=== PATIENT | female | born 1975 | race Caucasian/White ===

== ENCOUNTER 2024-06-26 12:52 | Emergency (ER) | payer MEDICAID, SELFPAY ==
[2024-06-26] VITALS (114 sets, daily range): BP systolic 105–141; BP diastolic 58–91; PULSE 53–124; RESP 15–50; TEMP 36.2–36.6; O2SAT 92–98
--- NOTE | 2024-06-26 13:23 | ED.GENADUL_ITS ---
Discharge Plan Discharge Details Chief Complaint: Abd Prob Clinical Impression: Pneumoperitoneum, Rectal mass, Liver mass Primary Care Provider: None,None ED Provider: Jeramie Cochran [place] Meds and New Rx's Prescriptions: No Action omeprazole 20 MG capsule,delayed release(DR/EC) 20 mg PO DAILY Qty: 60 0RF Rx Instructions: Take in the morning on an empty stomach at least 20-30 minutes before first meal ibuprofen [Advil] 200 MG tablet 1 tab PO PRN PRN HPI General Date/Time Provider Initiated Documentation: 06/26/24 13:14 . HPI Narrative: [facility] This is a cachectic tachycardic[ ] 49-year-old female with generalized abdominal pain concerning for possibility of appendicitis versus diverticulitis. Patient will undergo CT scan. No pain out of proportion to suggest necrotizing soft tissue infection. No rash to abdomen to suggest zoster. No chest pain or shor tness of breath to suggest ACS I did not obtain an ECG this patient has abdominal tenderness. Pain was postprandial so biliary colic is certainly in the differential. Patient has a reassuring CT scan we will consider formal right upper quadrant ultrasound. I considered sepsis patient is tachycardic however she is not septic appearing and not hypotensive so I did not feel that she required broad-spectrum antibiotics nor assessment of her lactate. Patient is quite slight and she has not had a colonoscopy so colonic mass is certainly in differential. Given general pain and no history of nephrolithiasis my suspicion is low for ureterolithiasis. Based on the patient's low BMI SMA syndrome is certainly in the differential. Patient has no history of inflammatory bowel disease some not suspicious for new onset Crohn's or ulcerative colitis based on the patient's age. Nonicteric sclera and not altered so doubt extension cholangitis. No dysuria or frequency to suggest UTI so did not order urinalysis. My suspicion is low for small bowel obstruction given no past surgical history. Given marijuana use cannabinoid hyperemesis syndrome certainly possibility. Will reassess following CT scan. 2:51 PM Patient has new hyperbilirubinemia and an DIONY. Anion gap but normal bicarbonate??not consistent with DKA. Mildly elevated alkaline phosphatase. Negative hCG. Lipase within normal limits. CBC showing erythrocytosis but no leukocytosis. New thrombocytosis. 4:45 PM Patient has a large rectal mass with perforation and multiple hepatic mets and pulmonary nodules suspicious for metastatic disease. I was in touch with Dr. Cano from general surgery and he felt that the patient would benefit from tertiary care involvement as she would likely need ICU and possibility of a colo rectal surgeon. I reached out to the transfer center at [facility]. They are checking for capacity. Patient's heart rate is improving. She is normothermic. She is hide blood cultures drawn and received piperacillin/tazobactam. She has been n.p.o. since midnight. I updated the patient on her new diagnosis of malignancy. General surgery evaluated the patient at bedside and would be willing to accept the patient locally if tertiary care were not available. Will sign patient out to the evening provider. Chronic conditions affecting the care of the patient: N/A History obtained from an outside historian: N/A External record review: No [facility] EMR records Medications: Ondansetron fentanyl Social determinants of health affecting disposition: N/A Management discussed with: General Surgery & EM Treatment/interventions considered: N/A Response to therapies provided: N/A HPI This is a 49-year-old female brought to the emergency department via private vehicle with her son in setting of abdominal pain which has been throbbing constant and generalized for approximately 24 hours. Patient denies exacerbators and alleviators. She has had no surgeries in the past to her abdomen. She denies dysuria and frequency. She has no history of inflammatory bowel disease and specifically denies Crohn's or ulcerative colitis. She is a daily smoker and uses marijuana. She denies routine ethanol. She has never had a colonoscopy in the past. She does endorse a fever but she does not recall how high it was. She has had years worth of diarrhea. She denies history of nephrolithiasis. Exam General: Uncomfortable-appearing in no acute distress speaking in complete sentences. Head: Normocephalic, atraumatic. Eye: Extraocular eye movements intact. No conjunctival injection. No scleral icterus. Ear, nose, mouth, throat: Grossly normal inspection. Normal voice, handling secretions normally. Neck: Trachea midline. Cardiovascular: Well-perfused distal extremities. Rapid regular rate Respiratory: Nonlabored respiration. Clear lungs bilaterally Gastrointestinal: Nondistended abdomen. Scaphoid abdomen. Generalized abdominal tenderness. No rebound. No guarding. Musculoskeletal: No edema. Moving all 4 extremities spontaneously. Skin: Normal for age and race, grossly normal temperature and turgor. No acute rash. Neurologic: Alert and appropriate, no apparent acute deficits. GCS 15. Psychiatric: Mood and manner are appropriate. Grooming and personal hygiene are appropriate. Related Data Home Medications ?Medication ?Instructions ?Recorded ?Confirmed ibuprofen 200 mg tablet (Advil) 1 tab PO PRN PRN 05/23/14 06/26/24 omeprazole 20 mg capsule,delayed 20 mg PO DAILY #60 tab-caps 08/08/17 06/26/24 release Previous Rx's ?Medication ?Instructions ?Recorded omeprazole 20 mg capsule,delayed 20 mg PO DAILY #60 tab-caps 08/08/17 release Allergies Allergy/AdvReac Type Severity Reaction Status Date / Time sulfamethoxazole (From Allergy Severe Skin Rash Verified 06/26/24 15:03 Bactrim) and can't breathe trimethoprim (From Bactrim) Allergy Severe Skin Rash Verified 06/26/24 15:03 and can't breathe hydrocodone bitartrate (From Allergy Intermediate wakeful Verified 06/26/24 15:03 Vicodin) diazepam (From Valium) Allergy Mild wakeful Verified 06/26/24 15:03 diphenhydramine HCl (From Allergy Unknown Agitation Verified 06/26/24 15:03 Benadryl) acetaminophen (From Percocet) AdvReac Mild Nausea Verified 06/26/24 15:03 calamine AdvReac Mild itchy rash Verified 06/26/24 15:03 oxycodone HCl (From Percocet) AdvReac Mild Nausea Verified 06/26/24 15:03 oxyclean Allergy Mild Hives Uncoded 06/26/24 13:26 flea spray Allergy Rash Uncoded 06/26/24 15:03 dago dish soap AdvReac Mild itchy rash Uncoded 06/26/24 13:26 General Stated Complaint: Abd Prob MARIA TERESA: 3 Course Vital Signs Vital signs: Vital Signs Pulse 124 H 06/26/24 13:07 Respiratory Rate 15 06/26/24 13:07 Blood Pressure 113/74 06/26/24 13:07 Pulse Oximetry 98 06/26/24 13:07 Pulse 124 H 06/26/24 13:07 Respiratory Rate 15 06/26/24 13:07 Blood Pressure 113/74 06/26/24 13:07 Blood Pressure Position Sitting 06/26/24 13:07 Pulse Oximetry 98 06/26/24 13:07 Oxygen Delivery Method Room Air 06/26/24 13:07 Oxygen Flow Rate 0 06/26/24 13:07 Medical Decision Making Quality:SDOH Health Related Social Needs: No Data to Display Critical Care Time Critical Care Time Critical Care Time: Yes Total Critical Care Time: 30 Attestation: Bedside assessment and coordination of care PFSH All Active Problems (Updated 06/26/24 @ 16:49 by Jeramie Cochran MD) Liver mass (Acute) Rectal mass (Acute) Pneumoperitoneum (Acute) Medical History (Updated 06/26/24 @ 16:49 by Jeramie Cochran MD) Hepatitis C Hepatitis A MRSA (methicillin resistant Staphylococcus aureus) Substance abuse Hx of abnormal cervical Pap smear Colposcopy 06/2014 Surgical History (Updated 05/10/18 @ 14:35 by [employer] [place]) Tonsillectomy (06/28/14) Cervical Surgery for Precancerous Lesion Family History Mother Essential hypertension Hyperlipidemia Father Essential hypertension Hyperlipidemia Stroke Brother No problems noted. Maternal Grandmother Rheumatic fever Maternal Uncle Diabetes Sister Substance abuse Social History Smoking/Tobacco Use Status: Current every day Tobacco Type: cigarettes Smoking risk assessment performed?: Yes Alcohol Intake: never Drug use: Never Housing: house Do you feel safe at home: Yes Do you feel safe in your relationship?: Yes
--- NOTE | 2024-06-26 13:23 | DI.CT_ITS ---
Exam(s) CT ABDOMEN PELVIS W EXAM: CT ABDOMEN PELVIS W CLINICAL HISTORY: Generalized abdominal pain TECHNIQUE: Imaging Protocol: Axial computed tomography images with coronal and sagittal reformatted images were created and reviewed. CONTRAST MATERIAL: Intravenous: Omnipaque 350 Contrast volume:75 mL Oral: yes / no COMPARISON: No exams were available for comparison FINDINGS: ABDOMEN: Lung Bases: There is a 6 mm nodule in the right middle lobe (series 10, image 2). Liver: Normal density. There are multiple hepatic masses present. The largest is in the right lobe a nd measures 7.1 x 6.7 cm (series 10, image 27. The findings are most suspicious for metastatic disea se. Portal, Superior Mesenteric, and Splenic Veins: Unremarkable. Gallbladder and Biliary Tract: No radiodense calculus or dilation. Pancreas: Normal density, no abnormal calcifications or inflammatory process. Spleen: Normal. Adrenals: There is nodularity of the left adrenal gland. The right adrenal gland is unremarkable. Kidneys: Normal size, contour and axis. No radiodense stones or obstructive uropathy. There is a 3.8 craniocaudad by 4.0 transverse by 3.0 AP cm heterogeneously enhancing mass arising from the superior aspect of the left kidney most suspicious for renal neoplasm. Abdominal Aorta: Abdominal portion non-dilated. Atherosclerotic calcification is present. There is a less than 2 cm dissection seen in the distal abdominal aorta of indeterminate age. Bowel: There is circumferential thickening of the wall of the rectum measuring up to 2 cm. It measur es approximately 9 cm in length. There is rupture of the wall at the left aspect (image 184. There is moderate pneumoperitoneum present. There are enlarged lymph nodes in the perirectal soft tissues. There are scattered areas of wall thickening involving the stomach small bowel and colon. No evide nce of appendicitis. There is stool seen in the colon particularly in the transverse and ascending c olon. Peritoneal Cavity: Small amount of perihepatic and right pericolic color ascites. There is a small t o moderate amount of pelvic ascites present. There is pneumoperitoneum present. Lymph Nodes: There are enlarged perirectal lymph nodes. Bones: Within normal limits for the patient's age. No aggressive osseous lesions. Soft Tissues: Unremarkable. PELVIS: Bladder: Symmetric distention, no gross wall thickening. Reproductive Organs: Unremarkable as visualized. Lymph Nodes: Within normal limits. Bones: Within normal limits for the patient's age. IMPRESSION: 1. Circumferential thickening up to 2 cm in the rectum suspicious for rectal neoplasm. There is perf oration anteriorly into the left with [id number] pneumoperitoneum resulting. There are enlarge d lymph nodes in the perirectal soft tissues. 2. Multiple hepatic masses consistent with metastatic disease. 3. Right middle lobe pulmonary nodule suspicious for pulmonary metastatic disease. 4. Abdominal pelvic ascites. 5. Heterogeneously enhancing left renal lesion suspicious for renal neoplasm. 6. Bowel wall thickening seen in the stomach small bowel and colon. An infectious/inflammatory proce ss should be considered. Neoplasm cannot be excluded. 7. Findings were discussed with Dr. Cochran at 3:50 p.m. on 06/26/2024. RADIATION DOSE DELIVERED: 172.01mGy.cm Total DLP DATA REPOSITORY: All CT scans at this facility are submitted to the National Radiology Data Registry (NRDR) Dose Index Registry (DIR) with the [employer] (ACR). RADIATION OPTIMIZATION: All CT scans at this facility use at least one of these dose optimization te chniques: automated exposure control; mA and/or kV adjustment per patient size (includes targeted exa ms where dose is matched to clinical indication); or iterative reconstruction.
[2024-06-26] MEDS: Ondansetron 4 MG/2 ML VIAL IVP ×2 (13:40→18:30)
[2024-06-26] MEDS: fentaNYL 100 MCG/2 ML VIAL 50 MCG IVP ×2 (13:41→14:58)
[2024-06-26 13:43] LABS: HCT 50.8 % (36.0-46.0); HGB 16.6 g/dL (11.2-15.7); MCH 26.7 pg (27.0-33.0); MCHC 32.7 % (32.0-36.0); MCV 82 fL (80-95); MPV 9.5 fL (8.0-11.0); Platelet Count 532 10^3/uL (130-400); RBC 6.21 10^6/uL (3.93-5.22); RDW 13.2 % (11.7-14.6); RDW-SD 38.7 fL; WBC 7.87 10^3/uL (4.4-10.8)
[2024-06-26 13:58] LABS: ALT 14 U/L (14-59); AST 43 U/L (15-37); Albumin 2.4 g/dL (3.4-5.0); Alkaline Phosphatase 139 U/L (46-116); Anion Gap 19.8 mmol/L (3-11); BUN 44 mg/dL (7-18); Bilirubin, Total 1.41 mg/dL (0.2-1.0); CO2 21.2 mmol/L (21.0-32.0); CREATININE 1.7 mg/dL (0.55-1.02); Chloride 99 mmol/L (98-107); Estimated GFR 36.76 (mL/min/1.73m2); Glucose 120 mg/dL (74-106); Lipase 8 U/L (<78); Potassium 3.5 mmol/L (3.5-5.1); Sodium 140 mmol/L (136-145); Total Protein 7.4 g/dL (6.4-8.2)
[2024-06-26 14:01] LABS: Calcium 8.9 mg/dL (8.5-10.1)
[2024-06-26 14:06] LABS: HCG Qual (Serum) Negative
[2024-06-26 14:37] LABS: Absolute Monocyte Count 0.39 10^3/uL (0.1-0.8); Atypical Lymphocytes % 1 %; Bands % 39 %; Metamyelocytes % 24; Myelocytes % 1; Other Cells % 0; Promyelocytes % 0
[2024-06-26] MEDS: Omnipaque 350 MG/ML 100 ML BTL 75 ML IJ (15:00)
[2024-06-26] MEDS: Normal Saline - Diluent 50 ML VIAL IJ (15:01)
[2024-06-26] MEDS: Normal Saline 500 ML 1000 ML IV (15:30)
--- NOTE | 2024-06-26 16:02 | W.SURGCON ---
Date of service: 06/26/24 Time of Service: 16:02 Assessment and Plan Assessment and plan (1) Rectal cancer metastasized to liver: Status: Acute Assessment and plan: 49 yo woman with perforated rectal cancer that is already throughout her liver and lungs. She is dying. With empathy, I discussed this in direct detail with her and her son in the room. Without emergency surgical intervention, she will almost certainly in the very near future. Likely a few days or less. Emergency surgery intervention would involve exploration, resection of some of her colon and at least one ostomy creation, possibly two in order to decompress the distal obstruction in the rectum. She might not even survive the surgery, but likely would, and would need ICU care afterwards. She would then survive but still be dying from very advanced cancer and likely have only a short while to live. This is all news to her and she was unaware of her advanced cancer state. I did tell her that palliative care and comfort measures only was an acceptable plan of action. She expressed her understanding and to my assessment, does not seem surprised at the news, but saddened by it. At the time of this consult, she was not sure what course of action she wanted to take. She is more than 24 hours into this perforation event. If she decides on surgery, I do think it is in her interest to have this done at a tertiary center where an entire care team exists that can help her manage and understand all of her options. Not sure if she would qualify for a clinical trial? I certainly did NOT give her inappropriate hope, but did present a very realistic scenario of a post-operative course that is likely to be sheeba and difficult in addition to having to continue with dealing with cancer. She will essentially live, to keep dying. She will buy herself some time as the only obvious benefit to having surgery. The ED provider has reached out to [facility] colorectal surgery for transfer consideration and possibly ED to ED transfer. This should only be done if she is choosing to pursue treatment. If she chooses comfort care, she can be admitted here at [facility] for palliative consult and setting up hospice at home. Emergency surgery here at [facility] is a last resort that I am willing to do if she wants that and transfer is not an option. She understands that the surgery and the recovery period will require intensive care and she may not survive it. Her nutritional status is already obviously compromised at baseline. PLAN: Pending patient decisions and/or transfer options. History of Present Illness Narrative: 49 yo woman presents with abdominal pain since yesterday mid-day. Severe. Says sudden onset. She doesn't like coming to the hospital so she tried to put it off. She says she has been losing weight recently. Only diarrhea with bowel movements for over a year she reports. Sees blood occasionally, but not always. CT scan showed free air, free fluid, secondary to a perforation of what looks like a very advanced rectal cancer. She has metastatic lesions throughout the lung and liver parenchyma. At the bedside she asks me: Am I dying? PFSH All Active Problems (Updated 06/26/24 @ 20:00 by Ag Cano MD) Rectal cancer metastasized to liver (Acute) Liver mass (Acute) Rectal mass (Acute) Pneumoperitoneum (Acute) Medical History (Updated 06/26/24 @ 20:00 by Ag Cano MD) Hepatitis C Hepatitis A MRSA (methicillin resistant Staphylococcus aureus) Substance abuse Hx of abnormal cervical Pap smear Colposcopy 06/2014 Surgical History (Updated 05/10/18 @ 14:35 by [employer] MD) Tonsillectomy (06/28/14) Cervical Surgery for Precancerous Lesion Family History Mother Essential hypertension Hyperlipidemia Father Essential hypertension Hyperlipidemia Stroke Brother No problems noted. Maternal Grandmother Rheumatic fever Maternal Uncle Diabetes Sister Substance abuse Social History Smoking/Tobacco Use Status: Current every day Tobacco Type: cigarettes Smoking risk assessment performed?: Yes Alcohol Intake: never Drug use: Never Housing: house Do you feel safe at home: Yes Do you feel safe in your relationship?: Yes Exam Narrative Exam Narrative: Gen: Cachetic, toxic and weak. She is in pain. Neuro: AxOx3 Psych: Mood and affect appropriate. Chest: Nonlabored breathing Heart: Regular but tachycardic rate Abdomen: Distended and firm. Peritoneal signs in all 4 quadrants. Results Last Vital Signs Pulse 113 H 06/26/24 15:00 Resp 18 06/26/24 15:06 BP 119/80 06/26/24 15:00 Pulse Ox 93 06/26/24 15:00 Labs 06/26/24 13:33 06/26/24 13:33 Labs: Laboratory Results - last 24 hr 06/26/24 13:33 WBC 7.87 RBC 6.21 H Hgb 16.6 H Hct 50.8 H MCV 82 MCH 26.7 L MCHC 32.7 RDW 13.2 Plt Count 532 H MPV 9.5 Immature Gran % 0.0 Neutrophils % 16.0 Band Neutrophils % 39 Lymphocytes % 13.0 Atypical Lymphs % 1 Monocytes % 5.0 Eosinophils % 0.0 Basophils % 0.0 Metamyelocytes % 24 Myelocytes % 1 Promyelocytes % 0 Other Cells % 0 Nucleated RBC % 0.0 Absolute Neutrophils 7.40 H Absolute Lymphocytes 1.10 L Absolute Monocytes 0.39 Absolute Eosinophils 0.00 Absolute Basophils 0.00 Sodium 140 Potassium 3.5 Chloride 99 Carbon Dioxide 21.2 Anion Gap 19.8 H BUN 44 H Creatinine 1.7 H Est GFR (CKD-EPI 2020) 36.76 Glucose 120 H Calcium 8.9 Total Bilirubin 1.41 H AST 43 H ALT 14 Alkaline Phosphatase 139 H Total Protein 7.4 Albumin 2.4 L Lipase 8 Serum HCG, Qual Negative
[2024-06-26] MEDS: HYDROmorphone 2 MG/ML SYR 0.5 MG IVP ×2 (16:05→18:28)
[2024-06-26] MEDS: PIPERACILLIN/TAZO 3.375 GM in Normal Saline 50 ML IVPB (16:10)
--- NOTE | 2024-06-26 16:56 | ED.PROG_ITS ---
Date of service: 06/26/24 Time of Service: 16:56 Medical Decision Making w care assumed from off going provider. Patient is a 49-year-old female with no known medical problems that presented with abdominal pain. Found to have diffuse metastatic disease and a perforated rectal mass. She has been evaluated by general surgery here. Given the severity of her findings and the complexity of her surgery, they are recommending care at tertiary facility. We have reached out to [facility] for potential transfer. [id number] Transfer center called back and stated that colorectal surgeon was entering a case and would not be available to speak with us for another 3 hours. They will contact us back at that time. 1999 I had a conversation with our general surgeon here who is highly concerned about the delay in decision for this patient. Ultimately she would benefit from care at the tertiary facility and if she is not going to be accepted for transfer and we are going to have this complicated surgery at this facility, we really do not want to delay any further. I did reach back out to the transfer center and was able to get permission to send the patient to the emergency department. Accepting Dr Brasher. Family updated and patient transferred emergently. Quality:SDOH Health Related Social Needs: No Data to Display Sign Out Sign Out Data: Sign Out Comment: 49-year-old female new onset pneumoperitoneum secondary to perforated rectal mass: Follow-up [facility] [place] [place] attempt to transfer given need for higher level care. If [facility] [place] [place] declines discussed possibility of local surgery. Last updated by Jeramie Cochran MD at 06/26/24 16:49 Discharge Plan Discharge Details Chief Complaint: Abd Prob Clinical Impression: Pneumoperitoneum, Rectal mass, Liver mass Primary Care Provider: None,None ED Provider: Yusuf Headley Home Meds and New Rx's Prescriptions: No Action omeprazole 20 MG capsule,delayed release(DR/EC) 20 mg PO DAILY Qty: 60 0RF Rx Instructions: Take in the morning on an empty stomach at least 20-30 minutes before first meal ibuprofen [Advil] 200 MG tablet 1 tab PO PRN PRN
[2024-06-26] MEDS: Normal Saline 1,000 ML 80 ML IV (19:13)
[2024-06-26] MEDS: HYDROmorphone 2 MG/ML SYR 1 MG IVP (20:50)
== END 2024-06-26 20:47 | disposition short-term general hospital (02) ==
PROVIDERS: Emergency Medicine; Emergency Provider Emergency Medicine
DX: K66.8 Other specified disorders of peritoneum; K62.89 Other specified diseases of anus and rectum; R16.0 Hepatomegaly, not elsewhere classified; E80.6 Other disorders of bilirubin metabolism; F17.210 Nicotine dependence, cigarettes, uncomplicated
CPT/HCPCS: 00123; 36415; 80053; 83690; 86850; 86900; 86901; 87040; 96361; 96365; 96375; 96376; 99285; 74177; 84703; 85025; J1171; J2405; J2543; J3010; J3490